=== PATIENT | male | born 1965 | race Caucasian/White ===

== ENCOUNTER 2024-12-13 15:57 | Emergency (ER) | payer MEDICAID ==
[~2024-12-13] VITALS: Ht 172.7 cm; Wt 75.2 kg
[2024-12-13 15:59] VITALS: BP 147/74; PULSE 86; RESP 16; TEMP 98.2; O2SAT 97
--- NOTE | 2024-12-13 16:40 | Physician Documentation ---
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 Patient reports no recent opioid use other than daily Suboxone therapy. Patient reports that he received 16 mg Suboxone daily. Medication Reconciliation Allergies: Coded Allergies: No Known Allergies (Unverified , 12/13/24) Past Medical History Past Medical History: *PSYCH* (Substance abuse) Drug Use: other (Opioids) Review of Systems ROS As stated above in the HPI, otherwise all systems are reviewed and negative. Physical Exam Physical Exam Vital Signs: Temperature: 98.2, Source: Temporal, Heart Rate: 86, Respiratory Rate: 16, BP: 147/74, Pulse Oximetry: 97, Weight: 75.200 Oxygen Flow Rate: 0 Physical Exam VITALS: Reviewed and as above. GENERAL: Alert, nontoxic appearing, no apparent distress. RESPIRATORY: No increased work of breathing, no respiratory distress, speaking in full clear sentences Progress Results/Orders Results/Orders Orders - JORDAN COLLINS Substance Use Navigator (12/13/24 16:43) Completed Orders - JORDAN COLLINS Buprenorphine/Naloxone Sl Film (Suboxone (12/13/24 16:10) Vital Signs 12/13/24 15:59 Temp 98.2 Pulse 86 Resp 16 B/P (MAP) 147/74 Pulse Ox 97 O2 Flow Rate 0 Medical Decision Making Findings This 59-year-old male presented requesting a dose of Suboxone, patient reported no acute medical concerns and brief physical exam in triage demonstrated no evidence of acute medical emergency, patient's is unable to cigar packer and picker prescriptions currently therefore provided a dose of 16 mg of Suboxone in the emergency department, his information was passed on to our substance use navigator and patient was provided home care instructions and return to care precautions. Patient is to follow up with his chief mechanical officer to reestablish housing and medical insurance. Differential Dx:Considerations: Include: Adverse circumstances, Economic, Psychosocial, Medical services unavail., Medication refill, Medication non- compliance, Other (Opioid withdrawal) Departure Time of Disposition: 16:41 Disposition: 01 HOME / SELF CARE / HOMELESS Impression: Primary Impression: Medication requested Additional Impressions: General medical exam History of opioid use Condition: Improved Discharge Instructions: Medicine Refill at the Emergency Department Additional Instructions: I have given your contact information to our substance use navigator who may reach out. Please follow up with your primary care provider in the next few days. Please return to the emergency department for any new or worsening concerning symptoms. Referrals: NO PRIMARY CARE PROVIDER (PCP) Education Educated: Patient Educated regarding: diagnosis, treatment, prognosis, need for follow up Signature Scribe Signature: No scribe Attestation: The note accurately reflects work and decisions made by me.COURTNEY Rojas 12/15/24 14:33 JORDAN COLLINS Dec 13, 2024 16:40
[2024-12-13] MEDS: buprenorphine/naloxone 8MG-2MG SUBlingual film SL ONE (16:54)
== END 2024-12-13 17:02 | disposition home or self-care (01) ==
LOC: ER 15:58
DX: Z00.8 Encounter for other general examination (principal); F11.90 Opioid use, unspecified, uncomplicated
CPT/HCPCS: 99283

== ENCOUNTER 2025-01-10 01:24 | Emergency (ER) | payer MEDICAID ==
[~2025-01-10] VITALS: Ht 170.2 cm; Wt 68.2 kg
[~2025-01-10 01:24] MED LIST: BUPR1FIL3 SL; QUET25TA PO
[2025-01-10 01:29] VITALS: BP 135/65; PULSE 87; RESP 17; TEMP 96.8; O2SAT 99
--- NOTE | 2025-01-10 03:01 | Physician Documentation ---
History of Present Illness ~ Chief Complaint: Foot pain Stated Complaint: FEET PAIN Time Seen by MD: 03:00 Primary Medical Doctor: mayank Woodard The patient presents with foot pain. I saw this patient here earlier in the emergency department for mental health reasons and medication refill. He returns complaining of bilateral foot pain. He tells me that he has calluses on his feet and they hurt because he walks around so much. He is homeless and does not have access to washing his body or clothes Tetanus witin 5 years: Yes Medication Reconciliation Allergies: Coded Allergies: No Known Allergies (Unverified , 01/10/25) Scheduled Buprenorphine Hcl/Naloxone Hcl (Suboxone 8 Mg-2 Mg Sl Film), 2 STRIP SL DAILY Quetiapine Fumarate (Seroquel), 25 MG PO HS Past Medical History Past Medical History: *PSYCH* Drug Use: other Review of Systems Musculoskeletal: Reports: pain Integumentary: Reports: dryness Physical Exam Vital Signs: Temperature: 96.8, Source: Temporal, Heart Rate: 87, Respiratory Rate: 17, BP: 135/65, Pulse Oximetry: 99, Weight: 68.200 Physical Exam General: This is a thin middle-aged man, who is sitting outside in a chair speaking to a armed security professional Heart: Regular rate, normal-appearing peripheral perfusion Lungs: normal work of breathing, speaking in full sentences Extremities: Warm and well-perfused Bilateral feet: The patient has calluses on both of his soles, with no significant erythema or evidence of cellulitis Progress Results/Orders Results/Orders Vital Signs 01/10/25 01:29 Temp 96.8 Pulse 87 Resp 17 B/P (MAP) 135/65 Pulse Ox 99 Medical Decision Making Additional Comment The patient presents with a foot pain. On exam he has calluses but no evidence of cellulitis or infection. He was given wipes to clean his feet, clean socks, and moisturizer to use at night. Departure Time of Disposition: 03:00 Disposition: 01 HOME / SELF CARE / HOMELESS Impression: Primary Impression: Foot pain Additional Impression: Callus of foot Condition: Stable Discharge Instructions: Corns and Calluses Referrals: NO PRIMARY CARE PROVIDER (PCP) Education Educated: Patient Educated regarding: diagnosis, treatment Signature Scribe Signature: na Attestation: JAY Suazo MD Jan 10, 2025 03:01
== END 2025-01-10 03:08 | disposition home or self-care (01) ==
LOC: ER 01:24
DX: L84 Corns and callosities (principal); M79.672 Pain in left foot; M79.671 Pain in right foot; F19.90 Other psychoactive substance use, unspecified, uncomplicated; Z59.00 Homelessness unspecified
CPT/HCPCS: 99282; A6250

== ENCOUNTER 2025-02-13 06:17 | Emergency (ER) | payer MEDICAID ==
[~2025-02-13 06:17] MED LIST changes: -BUPR1FIL3 SL
== END 2025-02-13 06:46 | disposition left against medical advice (07) ==
LOC: ER 06:18
DX: Z76.0 Encounter for issue of repeat prescription (principal); Z53.21 Procedure and treatment not carried out due to patient leaving prior to being seen by health care provider

== ENCOUNTER 2025-02-13 20:32 | Emergency (ER) | payer MEDICAID ==
[~2025-02-13] VITALS: Ht 170.2 cm; Wt 72.7 kg
--- NOTE | 2025-02-13 23:20 | Physician Documentation ---
HPI ~ General Chief Complaint: Medication Request Stated Complaint: MED REQUEST Time Seen by MD: 23:01 Primary Medical Doctor: mayank cornelius History of Present Illness HPI Comments 59-year-old male presents to the emergency department requesting Suboxone treatment and prescription. Was seen in the 09 of January and was prescribed 30 sublingual films yet he reports he was unaware that they were sent to the pharmacy. He has been without a Suboxone for two days. Very mild signs of withdrawal with recent Fentanyl use. Medication Reconciliation Allergies: Coded Allergies: No Known Allergies (Unverified , 01/10/25) Scheduled Quetiapine Fumarate (Seroquel), 25 MG PO HS Discontinued Medications Buprenorphine Hcl/Naloxone Hcl (Suboxone 8 Mg-2 Mg Sl Film), 2 STRIP SL DAILY Discontinued Reason: Auto Discontinued Past Medical History Past Medical History: *PSYCH* Drug Use: other Review of Systems All Other Systems at this time: Reviewed and Negative Constitutional: Reports: see HPI Physical Exam Physical Exam Vital Signs: RN Vital Signs have been reviewed: Yes, Temperature: 97.9, Heart Rate: 81, Respiratory Rate: 18, BP: 149/89, Pulse Oximetry: 98, Weight: 72.730 Oxygen Flow Rate: 0 General Appearance: alert, WD/WN, mild distress Pupils/EOM/Fundus: PERRLA Ear: auricle normal Oropharynx: normal inspection Respiratory: lungs clear, normal breath sounds Chest: no accessory muscle use Cardiovascular: tachycardia Gastrointestinal: increased bowel sounds Extremities: normal inspection Neurologic: oriented x4, hotel attendant II-XII nml as tested Thought/Hallucinations: normal thought pattern, no apparent hallucination; No: delusions, flight of ideas, grandiose Affect: appropriate Skin: warm/dry Progress Results/Orders Results/Orders Completed Orders - JAY ULRICH PAC Buprenorphine/Naloxone Sl Film (Suboxone (02/13/25 23:26) Vital Signs 02/13/25 02/13/25 20:46 23:38 Temp 97.9 98.6 Pulse 81 80 Resp 18 18 B/P (MAP) 149/89 145/85 Pulse Ox 98 99 O2 Flow Rate 0 Medical Decision Making Additional information obtaine: old records Findings Examination and history consistent with early withdrawal requiring medication assisted therapy. Patient to receive 60 mg of Suboxone sublingual. No red flags noted in patient's chart. Reassured patient to obtain his prescription from the pharmacy tomorrow and to continue with his therapy and keep all scheduled Behavioral Health/primary care follow up appointments. Safely discharged in the emergency department without adverse effects. Differential Dx:Considerations: Include: Adverse circumstances, Economic, Psychosocial, Medical services unavail., Medication refill, Medication non-compliance Departure Disposition: 01 HOME / SELF CARE / HOMELESS Impression: Primary Impression: Opiate withdrawal Additional Impression: Encounter for monitoring Suboxone maintenance therapy Condition: Improved Discharge Instructions: Medicine Refill at the Emergency Department, Medical Screening Exam Additional Instructions: Tonight in the emergency department you received 16 mg of Suboxone. Please obtain your prescription that was written on January 09 and follow up with your local primary care physician for continued public aid eligibility assistant opiate maintenance therapy. Referrals: NO PRIMARY CARE PROVIDER (PCP) Education Educated: Patient Educated regarding: diagnosis, treatment, prognosis, need for follow up Signature Scribe Signature: . Attestation: . JAY ULRICH PAC Feb 13, 2025 23:20
[2025-02-13] MEDS: buprenorphine/naloxone 8MG-2MG SUBlingual film SL STA (23:36)
[2025-02-13 23:38] VITALS: BP 145/85; PULSE 80; RESP 18; TEMP 98.6; O2SAT 99
== END 2025-02-13 23:47 | disposition home or self-care (01) ==
LOC: ER 20:33
DX: F11.23 Opioid dependence with withdrawal (principal); Z79.899 Other long term (current) drug therapy; Z51.81 Encounter for therapeutic drug level monitoring
CPT/HCPCS: 99283

== ENCOUNTER 2025-02-16 04:48 | Emergency (ER) | payer MEDICAID ==
[~2025-02-16] VITALS: Ht 170.2 cm; Wt 70.4 kg
--- NOTE | 2025-02-16 05:01 | Physician Documentation ---
History of Present Illness ~ Chief Complaint: Foot pain Stated Complaint: FOOT PAIN,EVAL Time Seen by MD: 05:00 Primary Medical Doctor: mayank Woodard Patient presents to the emergency room with chief complaint of bilateral foot pain. Use seen ambulating without issue to the emergency room but once he checked in started limping. He is actively crying in the exam room I asked him a few questions and he only wanted to cry. Tetanus witin 5 years: Yes Medication Reconciliation Allergies: Coded Allergies: No Known Allergies (Unverified , 01/10/25) Scheduled Quetiapine Fumarate (Seroquel), 25 MG PO HS Discontinued Medications Buprenorphine Hcl/Naloxone Hcl (Suboxone 8 Mg-2 Mg Sl Film), 2 STRIP SL DAILY Discontinued Reason: Auto Discontinued Past Medical History Past Medical History: *PSYCH* Drug Use: other Review of Systems ROS Patient unwilling to participate and review of systems Physical Exam Vital Signs: Temperature: 97.5, Heart Rate: 108, Respiratory Rate: 18, BP: 144/100, Pulse Oximetry: 100, Weight: 70.400 Oxygen Flow Rate: 0 Physical Exam General: Patient is awake, alert, oriented x4 in no acute distress Head: Normocephalic and atraumatic. Eyes: Conjunctival normal. EOMI. PERRL. ENT: Mucous membranes moist. Neck: Supple, trachea is midline. Chest: Clear to auscultation bilaterally without rales, rhonchi, or wheezes. There is no accessory muscle use or retractions. Cardiac: Tachycardic and regular without murmurs, gallops, or rubs. Progress Results/Orders Results/Orders Vital Signs 02/16/25 04:59 Temp 97.5 Pulse 108 Resp 18 B/P (MAP) 144/100 Pulse Ox 100 O2 Flow Rate 0 Medical Decision Making Additional information obtaine: old records Findings Patient presents to the emergency room with chief complaint of foot pain. I do not believe he is being forthcoming as he was seen walking without issue approaching the emergency room and now he is crying in his room in apparent pain. General Diff Dx:Considerations: Include: Abrasion, Contusion, Fracture, Hematoma, Laceration, Malunion, Neurovascular injury, Open fracture, Sprain, Ulcer, Other Knee Diff Dx:Considerations: Include: Abrasion, Arthritis, Contusion, DJD, Fracture-femur, Fracture-fibula, Fracture-patella, Fracture-tibia, Gout, Hematoma, Laceration, Meniscus injury, Neurovascular injury, Open fracture, Rheumatoid arthritis, Septic, Sprain, Sprain-MCL, Sprain-LCL, Sprain-ACL, Sprain-PCL, Other Ankle Diff Dx:Considerations: Include: Abrasion, Arthritis, Contusion, DJD, Fracture-metatarsal, Fracture-fibula, Fracture-tarsal, Fracture-tibia, Gout, Hematoma, Laceration, Malunion, Neurovascular injury, Nonunion, Open fracture, Osteomyelitis, Rheumatoid arthritis, Sprain, Septic, Ulcer, Other Foot Diff Dx:Considerations: Include: Abrasion, Arthritis, Cellulitis, Contusion, Dislocation, DJD, Fracture-metatarsal, Fracture-phalynx, Fracture- tarsal, Gout, Hematoma, Ingrown toenail, Laceration, Malunion, Neurovascular injury, Open fracture, Paronychia, Puncture, Rheumatoid, Sprain, Septic, Subungual hematoma, Ulcer, Other Toe Diff Dx:Considerations: Include: Abrasion, Cellulitis, Contusion, Dislocation, Felon, Fracture, Hematoma, Laceration, Neurovascular injury, Open fracture, Paronychia, Subungual hematoma, Other Departure Disposition: 01 HOME / SELF CARE / HOMELESS Impression: Primary Impression: Foot pain Condition: Stable Discharge Instructions: General Discharge Instructions Additional Instructions: [id number] ibuprofen and Tylenol for pain. Referrals: NO PRIMARY CARE PROVIDER (PCP) Signature Scribe Signature: No scribe Attestation: The note accurately reflects work and decisions made by me.James Bowers MD 02/16/25 05:13 JAMES BOWERS MD Feb 16, 2025 05:01
[2025-02-16] MEDS: buprenorphine/naloxone 8MG-2MG SUBlingual film SL SCH (06:06)
[2025-02-16 06:09] VITALS: BP 138/96; PULSE 99; RESP 20; TEMP 98.6; O2SAT 99
== END 2025-02-16 06:10 | disposition home or self-care (01) ==
LOC: ER 04:48
DX: M79.671 Pain in right foot (principal); M79.672 Pain in left foot; Z79.899 Other long term (current) drug therapy
CPT/HCPCS: 99283

== ENCOUNTER 2025-02-20 18:45 | Emergency (ER) | payer MEDICAID ==
[~2025-02-20] VITALS: Ht 170.2 cm; Wt 71.0 kg
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
[2025-02-20 21:08] LABS: MEAN PLATELET VOLUME 7.9 FL (7.4-10.4); RED CELL DISTRIBUTION WIDTH 12.5 % (11.5-14.5)
[2025-02-20 21:34] LABS: CREATININE 0.95 MG/DL (0.60-1.10); TOTAL CARBON DIOXIDE 27.8 MMOL/L (24-32); eCRCL 79 ML/MIN; eGFR 81 ML/MIN
[2025-02-20 21:57] LABS: ETHANOL < 10 MG/DL (<10)
[2025-02-20] MEDS: HYDROcodone/acetaminophen 5mg/325mg tablet PO ONE (23:00)
[2025-02-20 23:54] LABS: LEUKOCYTE ESTERASE ,URINE NEGATIVE (Neg); NITRITES, URINE NEGATIVE (Neg); OCCULT BLOOD,URINE NEGATIVE (Neg)
[2025-02-20 23:55] LABS: UA COLLECTION TYPE VOIDED
[2025-02-21 00:04] LABS: URINE AMPHETAMINE SCREEN NEGATIVE (Neg); URINE BARBITUATE SCREEN NEGATIVE (Neg); URINE BENZODIAZEPINES SCREEN NEGATIVE (Neg); URINE CANNABINOID SCREEN NEGATIVE (Neg); URINE COCAINE SCREEN NEGATIVE (Neg); URINE METHADONE SCREEN NEGATIVE (Neg); URINE OPIATE SCREEN NEGATIVE (Neg); URINE PHENCYCLIDINE SCREEN NEGATIVE (Neg)
[2025-02-21] MEDS ORDERED: NO HOME MEDS (02:45)
[2025-02-21 05:38] VITALS: BP 132/76; PULSE 67; RESP 18; TEMP 98.6; O2SAT 99
[2025-02-21] MEDS: buprenorphine/naloxone 8MG-2MG SUBlingual film SL SCH (07:39)
== END 2025-02-21 10:14 ==
LOC: ER 18:45
DX: R45.851 Suicidal ideations (principal); R07.89 Other chest pain; Z20.822 Contact with and (suspected) exposure to COVID-19
CPT/HCPCS: 36415; 80048; 80305; 80320; 81003; 84443; 85025; 87811; 99285

== ENCOUNTER 2025-02-21 20:36 | Emergency (ER) | payer MEDICAID ==
[~2025-02-21] VITALS: Ht 170.2 cm; Wt 68.2 kg
[~2025-02-21 20:36] MED LIST changes: +NO HOME MEDS
[2025-02-21 20:38] VITALS: TEMP 98.9
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
[2025-02-21 21:28] LABS: MEAN PLATELET VOLUME 7.9 FL (7.4-10.4); RED CELL DISTRIBUTION WIDTH 12.4 % (11.5-14.5)
[2025-02-21 21:41] LABS: CREATININE 0.84 MG/DL (0.60-1.10); TOTAL CARBON DIOXIDE 29.8 MMOL/L (24-32); eCRCL 90 ML/MIN; eGFR > 90 ML/MIN
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
[2025-02-21 22:31] VITALS: BP 178/87; PULSE 100; RESP 16; O2SAT 98
== END 2025-02-21 22:36 ==
LOC: ER 20:36
DX: Z00.00 Encounter for general adult medical examination without abnormal findings (principal); R07.89 Other chest pain; F17.200 Nicotine dependence, unspecified, uncomplicated; F15.90 Other stimulant use, unspecified, uncomplicated; F12.90 Cannabis use, unspecified, uncomplicated; Z79.899 Other long term (current) drug therapy
CPT/HCPCS: 36415; 71045; 74018; 80048; 80329; 85025; 99284